=== PATIENT | male | born 1980 | race Caucasian/White ===

== ENCOUNTER 2016-10-29 20:50 | Emergency (ER) | payer OTHER ==
[~2016-10-29] VITALS: Ht 180.3 cm; Wt 77.0 kg
[~2016-10-29 20:50] MED LIST: LORA-474 PO
[2016-10-29 20:58] VITALS: BP 131/97; PULSE 94; RESP 18; TEMP 98; O2SAT 98
[2016-10-29] MEDS ORDERED: LORA-474 PO (21:10)
[2016-10-29] MEDS ORDERED: AUGM875T PO (21:10)
[2016-10-29 21:11] VITALS: BP 131/97; PULSE 94; RESP 18; TEMP 98; O2SAT 98
[2016-10-29] MEDS ORDERED: SODIUM CHLORIDE 0.9% FLUSH 10 ML FLUSH IV FLUSH PRN (21:30)
--- NOTE | 2016-10-29 21:35 | PD ---
HPI Chief Complaint: Abdominal Pain Time Seen by Provider: 21:11 Travel History International Travel<30 days: No Contact w/Intl Traveler<30days: No Traveled to known affect area: No History of Present Illness HPI Patient is a 36-year-old male who was in to the emergency room by urgent care center for evaluation of abdominal pain. Patient reports that for the past 5 days, he has had increased lower abdominal pain. Patient reports that abdominal pain is located his left lower abdomen. Reports increased pressure to his lower abdomen which has been continuous for past 5 days. Reports that he has been constipated, reports that he has been trying to use laxatives with no relief of symptoms. Patient reports that he went to an urgent care center today and labs come to emergency for CT of the abdomen and pelvis. Patient with no fevers or chills, denies any nausea vomiting this time. Patient with no penile discharge, denies any dysuria, urinary urgency or frequency. PFSH Past Medical History Anxiety: Yes Diminished Hearing: No Psychiatric: Yes (PTSD) Immunizations Current: Yes Sleep Apnea: Yes Tetanus Vaccination: Unknown Influenza Vaccination: No Past Surgical History Oral Surgery: Yes (DENTAL) Social History Alcohol Use: Yes (SOCIALLY) Tobacco Use: No Substance Use: No Allergies-Medications (Allergen,Severity, Reaction): Coded Allergies: Ceclor (Verified Allergy, Intermediate, 10/29/16) Reported Meds & Prescriptions Reported Meds & Active Scripts Active Reported Ativan (Lorazepam) 1 Mg Tab 1 Mg PO BID PRN Augmentin (Amoxicillin-Clavulanate) 875-125 mg Tab 875 Mg PO BID not for use in CrCl <30 ml/min. Review of Systems General / Constitutional: No: Fever, Chills Eyes: No: Visual changes HENT: No: Headaches Cardiovascular: No: Chest Pain or Discomfort Respiratory: No: Shortness of Breath Gastrointestinal: Positive: Abdominal Pain, Constipation, No: Nausea, Vomiting Genitourinary: No: Dysuria Musculoskeletal: No: Pain Skin: No Rash Neurologic: No: Weakness Psychiatric: No: Depression Endocrine: No: Polydipsia Hematologic/Lymphatic: No: Easy Bruising Physical Exam Narrative GENERAL: No acute distress, nontoxic SKIN: Focused skin assessment warm/dry. HEAD: Atraumatic. Normocephalic. EYES: Pupils equal and round. No scleral icterus. No injection or drainage. ENT: No nasal bleeding or discharge. Mucous membranes pink and moist. NECK: Trachea midline. No JVD. CARDIOVASCULAR: Regular rate and rhythm. No murmur appreciated. RESPIRATORY: No accessory muscle use. Clear to auscultation. Breath sounds equal bilaterally. GASTROINTESTINAL: Abdomen soft, increased tenderness to left lower abdomen with no guarding on exam MUSCULOSKELETAL: No obvious deformities. No clubbing. No cyanosis. No edema. NEUROLOGICAL: Awake and alert. No obvious cranial nerve deficits. Motor grossly within normal limits. Normal speech. PSYCHIATRIC: Appropriate mood and affect; insight and judgment normal. Data Data Last Documented VS Vital Signs Date Time Temp Pulse Resp B/P Pulse Ox O2 Delivery O2 Flow Rate FiO2 10/29/16 22:10 97 18 139/82 98 Room Air 10/29/16 21:11 98.0 Orders Basic Metabolic Panel (Bmp) (10/29/16 21:16) Complete Blood Count With Diff (10/29/16 21:16) Urinalysis - C+S If Indicated (10/29/16 21:16) Ct Abd/Pel W Iv Contrast(Rout) (10/29/16 21:16) Iv Access Insert/Monitor (10/29/16 21:16) Sodium Chloride 0.9% Flush (Ns Flush) (10/29/16 21:30) Iohexol 350 Inj (Omnipaque 350 Inj) (10/29/16 22:33) Labs Laboratory Tests Test 10/29/16 10/29/16 21:20 21:25 Urine Color STRAW Urine Turbidity CLEAR Urine pH 6.0 Urine Specific [place] 1.004 Urine Protein NEG mg/dL Urine Glucose (UA) NEG mg/dL Urine Ketones NEG mg/dL Urine Occult Blood NEG Urine Nitrite NEG Urine Bilirubin NEG Urine Leukocyte Esterase NEG Urine WBC 0-2 /hpf Urine Squamous Epithelial 0-5 /hpf Cells Microscopic Urinalysis Comment CULT NOT INDICATED White Blood Count 5.3 TH/MM3 Red Blood Count 5.45 MIL/MM3 Hemoglobin 14.7 GM/DL Hematocrit 44.7 % Mean Corpuscular Volume 82.0 FL Mean Corpuscular Hemoglobin 27.0 PG Mean Corpuscular Hemoglobin 33.0 % Concent Red Cell Distribution Width 12.4 % Platelet Count 241 TH/MM3 Mean Platelet Volume 7.3 FL Neutrophils (%) (Auto) 50.7 % Lymphocytes (%) (Auto) 35.0 % Monocytes (%) (Auto) 9.9 % Eosinophils (%) (Auto) 4.1 % Basophils (%) (Auto) 0.3 % Neutrophils # (Auto) 2.7 TH/MM3 Lymphocytes # (Auto) 1.9 TH/MM3 Monocytes # (Auto) 0.5 TH/MM3 Eosinophils # (Auto) 0.2 TH/MM3 Basophils # (Auto) 0.0 TH/MM3 CBC Comment DIFF FINAL Differential Comment Sodium Level 143 MEQ/L Potassium Level 3.7 MEQ/L Chloride Level 104 MEQ/L Carbon Dioxide Level 30.3 MEQ/L Anion Gap 9 MEQ/L Blood Urea Nitrogen 13 MG/DL Creatinine 0.98 MG/DL Estimat Glomerular Filtration 88 ML/MIN Rate Random Glucose 83 MG/DL Calcium Level 8.7 MG/DL MDM Medical Decision Making Medical Screen Exam Complete: Yes Emergency Medical Condition: Yes Interpretation(s) Vital Signs Date Time Temp Pulse Resp B/P Pulse Ox O2 Delivery O2 Flow Rate FiO2 10/29/16 21:13 18 10/29/16 21:11 98.0 94 18 131/97 98 10/29/16 20:58 98.0 94 18 131/97 98 Differential Diagnosis Colitis, constipation, cystitis, pyelonephritis Narrative Course 36-year-old male who presents to emergency room with complaints of left lower quadrant abdominal pain for the past 5 days. Patient was sent to the emergency room by urgent care center for CT of the abdomen and pelvis to rule out colitis versus constipation. Patient reports that he has been having constant pain to his abdomen with with no relief of symptoms. Reports no fevers or chills, no nausea or vomiting. Patient comfortable on exam, labs as well as CT of abdomen and pelvis ordered for further evaluation of symptoms. Laboratory Tests Test 10/29/16 10/29/16 21:20 21:25 Urine Color STRAW (YELLW/STRAW) Urine Turbidity CLEAR (CLEAR) Urine pH 6.0 (5.0-8.5) Urine Specific [place] 1.004 (1.002-1.035) Urine Protein NEG mg/dL (NEG-TRACE) Urine Glucose (UA) NEG mg/dL (NEG) Urine Ketones NEG mg/dL (NEG) Urine Occult Blood NEG (NEG) Urine Nitrite NEG (NEG) Urine Bilirubin NEG (NEG) Urine Leukocyte Esterase NEG (NEG) Urine WBC 0-2 /hpf (0-5) Urine Squamous Epithelial 0-5 /hpf (0-5) Cells Microscopic Urinalysis Comment CULT NOT INDICATED White Blood Count 5.3 TH/MM3 (4.0-11.0) Red Blood Count 5.45 MIL/MM3 (4.50-5.90) Hemoglobin 14.7 GM/DL (13.0-17.0) Hematocrit 44.7 % (39.0-51.0) Mean Corpuscular Volume 82.0 FL (80.0-100.0) Mean Corpuscular Hemoglobin 27.0 PG (27.0-34.0) Mean Corpuscular Hemoglobin 33.0 % Concent (32.0-36.0) Red Cell Distribution Width 12.4 % (11.6-17.2) Platelet Count 241 TH/MM3 (150-450) Mean Platelet Volume 7.3 FL (7.0-11.0) Neutrophils (%) (Auto) 50.7 % (16.0-70.0) Lymphocytes (%) (Auto) 35.0 % (9.0-44.0) Monocytes (%) (Auto) 9.9 % (0.0-8.0) Eosinophils (%) (Auto) 4.1 % (0.0-4.0) Basophils (%) (Auto) 0.3 % (0.0-2.0) Neutrophils # (Auto) 2.7 TH/MM3 (1.8-7.7) Lymphocytes # (Auto) 1.9 TH/MM3 (1.0-4.8) Monocytes # (Auto) 0.5 TH/MM3 (0-0.9) Eosinophils # (Auto) 0.2 TH/MM3 (0-0.4) Basophils # (Auto) 0.0 TH/MM3 (0-0.2) CBC Comment DIFF FINAL Differential Comment Sodium Level 143 MEQ/L (136-145) Potassium Level 3.7 MEQ/L (3.5-5.1) Chloride Level 104 MEQ/L (98-107) Carbon Dioxide Level 30.3 MEQ/L (21.0-32.0) Anion Gap 9 MEQ/L (5-15) Blood Urea Nitrogen 13 MG/DL (7-18) Creatinine 0.98 MG/DL (0.60-1.30) Estimat Glomerular Filtration 88 ML/MIN (>89) Rate Random Glucose 83 MG/DL (74-106) Calcium Level 8.7 MG/DL (8.5-10.1) CT of the abdomen and pelvis with a few scattered diverticula in the sigmoid colon without any radiographic evidence of diverticulitis Patient reports that he is feeling much better at this time, abdomen is soft, nt , nd, no peritoneal signs. Signs and symptoms of when to return to emergency room was reviewed with patient detail. A copy of patient's CT report was given to him. Patient will return to emergency room as needed. Diagnosis Primary Impression: Abdominal pain Qualified Code: R10.32 - Left lower quadrant pain Patient Instructions: General Instructions Additional Instructions: Please give patient a copy of his lab work at discharge Please return to emergency room as needed Please return to emergency room if symptoms progress or worsen or return Please follow-up with your primary care doctor Please bring the copy of your CT report to doctor's office for follow-up Disposition: 01 DISCHARGE HOME Condition: Stable Mariana Rios DO Oct 29, 2016 21:35
[2016-10-29 21:38] LABS: AUTOMATED NEUTROPHIL # 2.7 TH/MM3 (1.8-7.7); BASOPHIL % 0.3 % (0.0-2.0); EOSINOPHIL # 0.2 TH/MM3 (0-0.4); EOSINOPHIL % 4.1 % (0.0-4.0); HEMATOCRIT 44.7 % (39.0-51.0); HEMO FLAGS DIFF FINAL; LYMPHOCYTE # 1.9 TH/MM3 (1.0-4.8); MONO % 9.9 % (0.0-8.0); NEUT % 50.7 % (16.0-70.0); PLATELET COUNT 241 TH/MM3 (150-450); RED BLOOD COUNT 5.45 MIL/MM3 (4.50-5.90); RED CELL DISTRIBUTION WIDTH 12.4 % (11.6-17.2); WHITE BLOOD COUNT 5.3 TH/MM3 (4.0-11.0)
[2016-10-29 21:47] LABS: BLOOD, URINE NEG (NEG); GLUCOSE,URINE NEG (NEG); KETONE, URINE NEG (NEG); NITRITE,URINE NEG (NEG)
[2016-10-29 21:50] LABS: POTASSIUM 3.7 MEQ/L (3.5-5.1)
[2016-10-29 21:53] LABS: BICARBONATE 30.3 MEQ/L (21.0-32.0)
[2016-10-29 22:07] LABS: URINE COLOR STRAW (YELLW/STRAW)
[2016-10-29 22:08] LABS: WBC, URINE 0-2 /hpf (0-5)
[2016-10-29 22:09] LABS: COMMENT (UR) CULT NOT INDICATED; CULTURE IF INDICATED CULT NOT INDICATED; SQUAMOUS EPITHELIAL CELL URINE 0-5 /hpf (0-5)
[2016-10-29 22:10] VITALS: BP 139/82; PULSE 97; RESP 18; O2SAT 98
[2016-10-29] MEDS ORDERED: IOHEXOL 350 MG/ML 10 ML VIAL (for RAD DIAG) IV ONE (22:33)
--- NOTE | 2016-10-29 22:50 | RADHPO ---
EXAM DATE/TIME: 10/29/2016 22:19 [facility] COMPARISON: No previous studies available for comparison. INDICATIONS : Left lower quadrant pain for five days. IV CONTRAST: 96 cc Omnipaque 350 (iohexol) IV ORAL CONTRAST: No oral contrast ingested. RADIATION DOSE: 7.62 CTDIvol (mGy) MEDICAL HISTORY : None SURGICAL HISTORY : None. ENCOUNTER: Initial ACUITY: 4 - 6 days PAIN SCALE: 7/10 LOCATION: Left lower quadrant TECHNIQUE: Volumetric scanning of the abdomen and pelvis was performed. Using automated exposure control and ad justment of the mA and/or kV according to patient size, radiation dose was kept as low as reasonably achievable to obtain optimal diagnostic quality images. FINDINGS: LOWER LUNGS: The visualized lower lungs are clear. LIVER: Homogeneous density without lesion. There is no dilation of the biliary tree. No calcified gallston es. SPLEEN: Normal size without lesion. PANCREAS: Within normal limits. KIDNEYS: Normal in size and shape. There is no mass, stone or hydronephrosis. ADRENAL GLANDS: Within normal limits. VASCULAR: There is no aortic aneurysm. BOWEL/MESENTERY: Nondilated loops of small and large bowel. Scattered diverticula are seen throughout the sigmoid col on with no radiographic evidence of diverticulitis. No evidence of free fluid ABDOMINAL WALL: Within normal limits. RETROPERITONEUM: There is no lymphadenopathy. BLADDER: No wall thickening or mass. REPRODUCTIVE: Within normal limits. INGUINAL: There is no lymphadenopathy or hernia. MUSCULOSKELETAL: Within normal limits for patient age. CONCLUSION: A few scattered diverticula in the sigmoid colon without radiographic evidence of diverticulitis. Kevin Cedeno MD on October 29, 2016 at 22:46 Board Certified Radiologist. This report was verified electronically.
[2016-10-29 23:20] VITALS: BP 122/86
== END 2016-10-29 23:21 | disposition home or self-care (01) ==
LOC: PHED 20:50
DX: R10.32 Left lower quadrant pain (principal); G47.30 Sleep apnea, unspecified; F41.9 Anxiety disorder, unspecified; F43.10 Post-traumatic stress disorder, unspecified; Z88.8 Allergy status to other drugs, medicaments and biological substances
CPT/HCPCS: 74177; 80048; 81001; 85025; 99284; Q9967